=== PATIENT | female | born 1975 | race African-American/Black ===

== ENCOUNTER → 2019-07-18 | Outpatient (CLI) | payer BC ==
[~2019-07-18] MED LIST: ACCUNEB SO1.25 MG/1 INH; BENADRYL25 MG PO; CLARITIN10 MG PO; DULERA 100 MCG/13 GM INH; FLONASE16 GM INH; MEDROLDOSEPACK PO; MUCINEX DM TABL1 TA1 PO; NASONEX17 GM SPRAY; PERCOCET 5-3251 EACH PO; PREDNISONE 20 M20 M1 PO; PREDNISONE50 MG PO; PROAIR HFA8.5 GM; PROAIR HFA8.5 GM IH; RHINOCORT ALL8.43 ML INH; SINGULAIR 10 MG10 M1 PO; SUDAFED30 MG PO; VENTOLIN HFA 1818 GM INH; ZPAK PO; ZYRTEC10 M2 PO
== END ==
LOC: RAD 10:32
DX: R06.02 Shortness of breath (principal); R06.00 Dyspnea, unspecified